=== PATIENT | male | born 1940 | race Caucasian/White ===

== ENCOUNTER → 2024-09-15 | Outpatient (CLI) | payer MEDICARE, OTHER, SELFPAY ==
--- NOTE | 2024-09-15 14:28 | XR_ITS ---
Examination: PA lateral chest 2 views TECHNIQUE: Upright PA lateral chest 2 views Exam date and time: September 15, 2024 1523 hours Comparison August 29, 2016 INDICATIONS: Difficulty breathing this week. FINDINGS: [id number] chronic heart failure pattern Mild cardiomegaly. Prominent vascular congestion with perihilar basilar edema Moderate to large bilateral pleural effusions Fluid in the fissures on the lateral view IMPRESSION: Mild to moderate heart failure pattern
[2024-09-15 15:50] LABS: Misc Send Out* See Sep Rpt
[2024-09-15 16:48] LABS: Basophils # (Auto) 0.1 Thou/mm3 (0.0-0.2); Basophils % (Auto) 1 % (0-2.5); Eosinophils # (Auto) 0.2 Thou/mm3 (0.0-0.5); Eosinophils % (Auto) 2 % (0-10); Hematocrit 28.7 % (41.0-53.0); Hemoglobin 9.1 g/dL (13.5-16.0); Immature Granulocytes % (Auto) 6 % (0-0); Immature Granulocytes Auto 0.52 Thou/mm3 (0.00-0.00); Lymphocytes # (Auto) 1.8 Thou/mm3 (1.0-4.8); Lymphocytes % (Auto) 21 % (10-50); Mean Corpuscular HGB Conc 31.7 g/dl (31.0-37.0); Mean Corpuscular Hemoglobin 28.8 pg (25.0-35.0); Mean Corpuscular Volume 91 fL (80-100); Monocytes # (Auto) 0.6 Thou/mm3 (0.0-0.8); Monocytes % (Auto) 7 % (0-12); Neutrophils # (Auto) 5.4 Thou/mm3 (1.8-7.7); Neutrophils % (Auto) 63 % (37-80); Nucleated Red Blood Cell # 0.41 Thou/mm3 (0.00-0.00); Nucleated Red Blood Cell % 5 /100 WBC (0); Platelet Count 180 Thou/mm3 (140-440); RDW Standard Deviation 60.1 fL (35.1-43.9); Red Blood Count 3.16 Miln/mm3 (4.50-5.90); White Blood Count 8.7 Thou/mm3 (3.8-10.6)
[2024-09-15 16:58] LABS: B-Type Natriuretic Peptide 2065 pg/mL (0-100)
[2024-09-15 17:01] LABS: Troponin I 0.034 ng/mL (0.0-0.045)
[2024-09-15 17:10] LABS: Alanine Aminotransferase 42 U/L (10-49); Albumin, Serum 4.3 gm/dL (3.4-4.8); Alkaline Phosphatase 348 U/L (46-116); Anion Gap 14 (7-16); Aspartate Amino Transferase 40 U/L (0-34); BUN/Creatinine Ratio 18 Ratio (12-20); Bilirubin,Total 0.6 mg/dL (0.3-1.2); Blood Urea Nitrogen 40 mg/dL (9-23); Calcium 9.2 mg/dL (8.3-10.6); Calcium (Corrected) 9.2 mg/dL (8.5-10.1); Carbon Dioxide 22.8 mMol/L (20.0-31.0); Chloride 102 mMol/L (98-107); Creatinine (Component) 2.2 mg/dL (0.6-1.3); Globulin 2.2 gm/dL (2.3-3.5); Glucose 113 mg/dL (74-106); Osmolality,Calculated 288 (275-295); Potassium 4.8 mMol/L (3.4-5.1); Procalcitonin 7.62 ng/ml (0.0-0.49); Sodium 139 mMol/L (136-145); Total Protein 6.5 gm/dL (5.7-8.2); eGFR 29 See Note
[2024-09-16 14:48] LABS: Band Neutrophils (Manual) 4 % (0-6); Lymphocytes (Manual) 18 % (20-44); Metamyelocytes (Manual) 2 % (0-0); Monocytes (Manual) 5 % (2-9); Myelocytes (Manual) 2 % (0-0); Neutrophils (Manual) 69 % (50-70)
[2024-09-16 15:06] LABS: Path Review Blood Smear Sent to Pathologist
== END | disposition home or self-care (01) ==
LOC: CDIM 15:22 → COPL 15:37
PROVIDERS: PCP Family Medicine; Referring Provider Family Medicine; Visit Provider Radiology Diagnostic Radiology
DX: R06.09 Other forms of dyspnea (principal)
CPT/HCPCS: 36415; 71046; 80053; 82550; 82552; 83880; 84145; 84484; 85025

== ENCOUNTER → 2024-10-23 | Outpatient (CLI) | payer MEDICARE, OTHER, SELFPAY ==
--- NOTE | 2024-10-23 12:24 | XR_ITS ---
Examination: CT abdomen and pelvis without contrast. Coronal 3-D reconstructions. Sagittal 2-D reconstructions. Date and time of exam:October 23, 2024 1230 hrs. Indications: Generalized abdominal pain several months, diagnosis bladder cancer CTDI: vol (mGy): 7.21 DLP: (mGycm): 368 Technique: Axial images of the abdomen have been obtained, 3 mm slice thickness Intravenous contrast material has not been administered. Low dose protocols were performed. One or more of the following dose reduction techniques were used; automated exposure control, adjustment of the mA and/or KV according to patient size, use of iterative reconstruction technique. Findings: Moderate vascular congestion Moderate bilateral pleural effusions Mild enlargement cardiac contour No focal liver or splenic lesions Gallbladder wall appears thickened No pancreatic mass Atrophic left kidney Left ostomy Abdominal aortic calcification Marked interval thickening of the urinary bladder wall measuring up to 19 mm Left inguinal hernia containing small bowel but no incarcerated bowel All visualized bones are densely sclerotic, advanced lumbar degenerative disc disease Impression: Recommend hepatobiliary sonography follow-up to exclude acute cholecystitis Atrophic left kidney, no hydronephrosis Interval marked thickening of urinary bladder wall, consider recurrent bladder carcinoma All visualized osseous structures exhibit dense abnormal sclerosis
[2024-10-23 13:44] LABS: Basophils # (Auto) 0.1 Thou/mm3 (0.0-0.2); Basophils % (Auto) 1 % (0-2.5); Eosinophils # (Auto) 0.2 Thou/mm3 (0.0-0.5); Eosinophils % (Auto) 2 % (0-10); Hematocrit 28.2 % (41.0-53.0); Immature Granulocytes % (Auto) 6 % (0-0); Lymphocytes # (Auto) 1.8 Thou/mm3 (1.0-4.8); Lymphocytes % (Auto) 20 % (10-50); Mean Corpuscular HGB Conc 30.9 g/dl (31.0-37.0); Mean Corpuscular Hemoglobin 30.9 pg (25.0-35.0); Mean Corpuscular Volume 100 fL (80-100); Monocytes # (Auto) 0.9 Thou/mm3 (0.0-0.8); Monocytes % (Auto) 10 % (0-12); Neutrophils # (Auto) 5.5 Thou/mm3 (1.8-7.7); Neutrophils % (Auto) 62 % (37-80); Nucleated Red Blood Cell # 0.86 Thou/mm3 (0.00-0.00); Nucleated Red Blood Cell % 10 /100 WBC (0); Platelet Count 137 Thou/mm3 (140-440); RDW Standard Deviation 81.2 fL (35.1-43.9); Red Blood Count 2.82 Miln/mm3 (4.50-5.90); White Blood Count 8.9 Thou/mm3 (3.8-10.6)
[2024-10-23 14:01] LABS: Alanine Aminotransferase 284 U/L (10-49); Albumin, Serum 4.1 gm/dL (3.4-4.8); Albumin/Globulin Ratio 2.1 (1.2-2.2); Alkaline Phosphatase 536 U/L (46-116); Amylase 73 U/L (30-118); Anion Gap 12 (7-16); Aspartate Amino Transferase 181 U/L (0-34); BUN/Creatinine Ratio 24 Ratio (12-20); Bilirubin,Total 0.8 mg/dL (0.3-1.2); Blood Urea Nitrogen 44 mg/dL (9-23); Calcium 8.3 mg/dL (8.3-10.6); Calcium (Corrected) 8.3 mg/dL (8.5-10.1); Carbon Dioxide 28.1 mMol/L (20.0-31.0); Chloride 100 mMol/L (98-107); Creatinine (Component) 1.8 mg/dL (0.6-1.3); Free T4 (Free Thyroxine) 0.92 ng/dL (0.89-1.76); Glucose 125 mg/dL (74-106); Lipase 80 U/L (12-53); Osmolality,Calculated 291 (275-295); Potassium 4.2 mMol/L (3.4-5.1); Sodium 140 mMol/L (136-145); Thyroid Stimulating Hormone 7.87 uIU/mL (0.55-4.78); Total Protein 6.1 gm/dL (5.7-8.2); eGFR 37 See Note
[2024-10-23 14:08] LABS: Hemoglobin 8.7 g/dL (13.5-16.0)
== END | disposition home or self-care (01) ==
LOC: CCTX 11:29
PROVIDERS: PCP Family Medicine; Referring Provider Nurse Practitioner Family; Visit Provider Nurse Practitioner Family
DX: N32.89 Other specified disorders of bladder (principal); N26.1 Atrophy of kidney (terminal); E03.9 Hypothyroidism, unspecified; I50.22 Chronic systolic (congestive) heart failure; N18.4 Chronic kidney disease, stage 4 (severe); R11.2 Nausea with vomiting, unspecified
CPT/HCPCS: 36415; 74176; 80053; 82150; 83690; 84439; 84443; 84480; 85025